=== PATIENT | male | born 1980 | race Caucasian/White ===

== ENCOUNTER 2018-10-30 06:07 | Emergency (ER) | payer SELFPAY ==
[2018-10-30 06:11] VITALS: BP 144/82; PULSE 102; RESP 24; TEMP 36.4; O2SAT 96
[2018-10-30 06:15] VITALS: RESP 24
--- NOTE | 2018-10-30 06:23 | ED.GENADUL_ITS ---
Discharge Plan Disposition Patient Disposition: HOME Condition: Improving Discharge Details Chief Complaint: GenMedical Clinical Impression: Acute bronchitis Primary Care Provider: None,None ED Provider: Priscilla Marin Home Meds and New Rx's Prescriptions: New amoxicillin-pot clavulanate [Augmentin] 875-125 mg tablet 1 tab PO BID 7 Days Qty: 14 RF: 0 prednisone 20 mg tablet See Rx Instructions .ROUTE .COMPLEX Qty: 12 RF: 0 Discharge Instructions Instructions: Acute Bronchitis (ED) Additional Instructions: Use the albuterol inhaler as needed directed for any shortness of breath, coughing or wheezing. Drink plenty of fluids and get plenty of rest. Alternate Tylenol and Motrin as needed and directed for pain or fever. You will receive a call from care management regarding a follow-up appoint with the primary care doctor within the next 1 week. Return immediately to the emergency department if you develop any worsening or new concerning symptoms. Stand Alone Forms: Work Release Discharge Data Discharge Date/Time-TO BE ENTERED AT DEPARTURE: 10/30/18 10:03 Discharge Physician: Priscilla Marin Medical Decision Making <Pancho Blas MD - Last Filed: 10/30/18 06:27> 37 yo female who denies chronic medical problems, does smoke but denies alcohol or drug use, comes in with subjective fevers and chills for several days along with cough and not having an appetitie. Denies rashes, severe abdominal pain, and no severe headaches or neck stiffness. He is noted to be diaphoretic on exam with intermittent dry cough and does have wheezing bilaterally at the bases. He has no abdominal tenderness and denies any tick bites. No recent travel per the pt. Given his exam findings and hx will obtain lab work and chest xray to [facility] for infiltrate and tx with steroids and nebulizer. He has no severe headaches or meningismus on exam so doubt event sales manager infection. Pt signed out to oncoming provider pending labs, xray an disposition Differential Diagnosis bronchitis, pna, tick born illness <Priscilla Marin DO - Last Filed: 10/30/18 12:11> 0700 --Please see Dr. Blas's note for initial presentation, exam and plan. 37-year-old male with a remote history of asthma who presents with sore throat, cough with green sputum, sweats and chills for the past week. Also admits to intermittent shortness of breath. Patient noted to be diaphoretic on arrival per Dr. Blas and upon my exam. He took Tylenol at 5 AM. He was given 1 L IV fluid. Vitals normal on my evaluation. Breath sounds noted scattered wheezing. Labs reviewed and note a normal white blood cell count. Lactate minimally elevated at 1.5. Anion gap 14. Urinalysis notes ketones but no infection. A tick panel was drawn but patient denies any known exposure to any tick bites. Rapid strep negative. Chest x-ray negative. Case endorsed to follow-up with patient on reassessment after fluids. I gave an additional liter IV fluids and Toradol and a second albuterol neb and patient feels better, no longer diaphoretic, lung sounds improved. Patient was able to ambulate around the emergency department and feels good to go home. Presentation most likely consistent with acute bronchitis. Denies any headache or neck pain and no meningeal signs so doubt meningitis. He is hemodynamically stable. As patient is a smoker and symptoms present for 1 week, will treat with antibiotics. Patient sent home with albuterol inhaler as well as prescription for steroids. Medical Records Medical records reviewed: Yes I reviewed the patient's medical records. Imaging Data Radiologic Study: Radiologist's impression: PA AND LATERAL CHEST: The heart is normal in size. The lungs are clear. The mediastinal structures and pleura appear intact. CONCLUSION: Normal chest. No evidence of acute cardiopulmonary disease. Lab Data Lab results reviewed: Yes I reviewed the patient's lab results. 10/30/18 07:23 Pharynx Streptococcus Screen (AGUS) - Pending 10/30/18 07:42 Blood Blood Culture - Pending 10/30/18 06:30 Blood Blood Culture - Pending Laboratory Tests Range/Units 10/30/18 10/30/18 10/30/18 06:30 06:30 06:30 WBC (4.4-10.8) k/cumm 8.82 RBC (4.50-6.00) m/cumm 5.64 Hgb (13.5-17.5) g/dL 16.8 Hct (40.0-50.0) % 48.3 MCV (80-95) fL 85.6 MCH (27.0-33.0) pg 29.8 MCHC (32.0-36.0) g/dL 34.8 RDW (11.8-14.1) % 12.3 Plt Count (130-400) x1000/uL 222 MPV (8.0-11.0) fL 9.7 Immature Gran % 0.1 Neutrophils % 69.1 Lymphocytes % 9.6 Monocytes % 20.9 Eosinophils % 0.1 Basophils % 0.2 Absolute Neutrophils (1.2-6.7) k/cumm 6.09 Absolute Lymphocytes (1.2-3.4) k/cumm 0.85 L Absolute Monocytes (0.11-0.7) k/cumm 1.84 H Absolute Eosinophils (0.0-0.7) k/cumm 0.01 Absolute Basophils (0.0-0.2) k/cumm 0.02 Differential Comment Agrees w/ instrument RBC Morphology Normal Sodium (136-145) mmol/L 138 Potassium (3.5-5.1) mmol/L 3.5 Chloride (98-107) mmol/L 102 Carbon Dioxide (21.0-32.0) mmol/L 21.6 Anion Gap (3-11) mmol/L 14.4 H BUN (7-18) mg/dL 16 Creatinine (0.70-1.30) mg/dL 1.19 Estimated GFR/1.73 m2 (mL/min/1.73m2) >= 60.00 Glucose (70-100) mg/dL 136 H Lactate (0.6-1.4) mmol/l 1.5 H Calcium (8.5-10.1) mg/dL 9.2 Total Bilirubin (0.2-1.0) mg/dL 0.4 AST (15-37) U/L 18 ALT (12-78) U/L 27 Alkaline Phosphatase (46-116) U/L 100 Total Protein (6.4-8.2) g/dL 8.2 Albumin (3.4-5.0) g/dL 4.1 Urine Color (Yellow) Urine Clarity (Clear) Urine pH (5-8) Ur Specific [place] (1.005-1.025) Urine Protein (Negative) mg/dL Urine Ketones (Negative) mg/dL Urine Blood (Negative) Urine Nitrite (Negative) Urine Bilirubin (Negative) Urine Urobilinogen (Up TO 0.2) EU/dL Ur Leukocyte Esterase (Negative) Urine RBC (0-2) Urine WBC (0-5) HPF Ur Epithelial Cells (Negative) HPF Urine Crystals (Negative) HPF Urine Bacteria (Negative) HPF Urine Casts (Negative) LPF Urine Mucus (Negative) Ur Culture Indicated? Urine Glucose (Negative) mg/dL Range/Units 10/30/18 07:52 WBC (4.4-10.8) k/cumm RBC (4.50-6.00) m/cumm Hgb (13.5-17.5) g/dL Hct (40.0-50.0) % MCV (80-95) fL MCH (27.0-33.0) pg MCHC (32.0-36.0) g/dL RDW (11.8-14.1) % Plt Count (130-400) x1000/uL MPV (8.0-11.0) fL Immature Gran % Neutrophils % Lymphocytes % Monocytes % Eosinophils % Basophils % Absolute Neutrophils (1.2-6.7) k/cumm Absolute Lymphocytes (1.2-3.4) k/cumm Absolute Monocytes (0.11-0.7) k/cumm Absolute Eosinophils (0.0-0.7) k/cumm Absolute Basophils (0.0-0.2) k/cumm Differential Comment RBC Morphology Sodium (136-145) mmol/L Potassium (3.5-5.1) mmol/L Chloride (98-107) mmol/L Carbon Dioxide (21.0-32.0) mmol/L Anion Gap (3-11) mmol/L BUN (7-18) mg/dL Creatinine (0.70-1.30) mg/dL Estimated GFR/1.73 m2 (mL/min/1.73m2) Glucose (70-100) mg/dL Lactate (0.6-1.4) mmol/l Calcium (8.5-10.1) mg/dL Total Bilirubin (0.2-1.0) mg/dL AST (15-37) U/L ALT (12-78) U/L Alkaline Phosphatase (46-116) U/L Total Protein (6.4-8.2) g/dL Albumin (3.4-5.0) g/dL Urine Color (Yellow) Yellow Urine Clarity (Clear) Clear Urine pH (5-8) 5.5 Ur Specific [place] (1.005-1.025) >= 1.030 H Urine Protein (Negative) mg/dL 30 H Urine Ketones (Negative) mg/dL 15 H Urine Blood (Negative) Negative Urine Nitrite (Negative) Negative Urine Bilirubin (Negative) Small H Urine Urobilinogen (Up TO 0.2) EU/dL 0.2 Ur Leukocyte Esterase (Negative) Negative Urine RBC (0-2) 0-2 Urine WBC (0-5) HPF Negative Ur Epithelial Cells (Negative) HPF Negative Urine Crystals (Negative) HPF Few amorphous Urine Bacteria (Negative) HPF Negative Urine Casts (Negative) LPF 5-10 wbc Urine Mucus (Negative) Heavy Ur Culture Indicated? No Urine Glucose (Negative) mg/dL Negative HPI <Pancho Blas MD - Last Filed: 10/30/18 06:27> General Mode of arrival: ambulatory . Date/Time Provider Initiated Documentation: 10/30/18 06:13 . Limitations to Documentation: no limitations . Information obtained by: patient . History of Present Illness 37 year old M presents to the emergency department with the chief complaint of not feeling well, described as moderate, Patient started experiencing this day(s) (3) and it has been constant. No relieving factors improve symptom(s), No exacerbating factors reported . Patient notes cough and fever/chills. P atient did receive the following treatments prior to arrival, none Related Data Home Medications Medication Instructions Recorded Confirmed amoxicillin-pot clavulanate 1 tab PO BID 7 Days #14 tab 10/30/18 [Augmentin] prednisone See Rx Instructions .ROUTE 10/30/18 .COMPLEX #12 tab Previous Rx's Medication Instructions Recorded amoxicillin-pot clavulanate 1 tab PO BID 7 Days #14 tab 10/30/18 [Augmentin] prednisone See Rx Instructions .ROUTE 10/30/18 .COMPLEX #12 tab Allergies Allergy/AdvReac Type Severity Reaction Status Date / Time No Known Drug Allergies Allergy Unverified 10/30/18 06:14 General Stated Complaint: GenMedical [place]: 3 Review of Systems <Pancho Blas MD - Last Filed: 10/30/18 06:27> Review of Systems All systems reviewed & are unremarkable except as noted in HPI and below Constitutional Denies chills, Denies fever(s) and Denies weakness Cardiovascular Denies chest pain and Denies dyspnea Respiratory Denies cough and Denies dyspnea Gastrointestinal Denies abdominal pain, Denies nausea and Denies vomiting Integumentary/Breasts Denies rash Neurologic Denies weakness PFSH <Pancho Blas MD - Last Filed: 10/30/18 06:27> Social History Smoking/Tobacco Use Status: Current every day Tobacco Type: cigarettes Smoking cigarettes per day: 12 Alcohol Intake: former Substance use type: does not use Do you feel safe at home: Yes Do you feel safe in your relationship?: Yes Exam <Pancho Blas MD - Last Filed: 10/30/18 06:27> Const General: no acute distress Orientation: alert HENMT Head: normal to inspection Ears: external ears normal General nose exam: external nose normal Mouth: moist mucous membranes Eyes General: appearance normal, both eyes and all related structures Neck Neck: normal visual inspection Resp Effort & Inspection: normal respiratory effort and able to speak in complete sentences Cardio Rate: regular rate Skin General skin exam: no rashes or lesions noted Neuro General: alert and oriented x3 Extrem General: normal to inspection Psych Mental Status: mental status grossly normal Course <Pancho Blas MD - Last Filed: 10/30/18 06:27> Vital Signs Temperature 36.4 C 10/30/18 06:11 Pulse 102 H 10/30/18 06:11 Respiratory Rate 24 10/30/18 06:11 Blood Pressure 144/82 H 10/30/18 06:11 Pulse Oximetry 96 10/30/18 06:11 Temperature 36.4 C 10/30/18 06:11 Temperature Source Tympanic 10/30/18 06:11 Pulse 102 H 10/30/18 06:11 Respiratory Rate 24 10/30/18 06:15 Respiratory Effort Non-Labored 10/30/18 06:15 Respiratory Depth Shallow 10/30/18 06:15 Respiratory Pattern Tachypnea 10/30/18 06:15 Blood Pressure 144/82 H 10/30/18 06:11 Pulse Oximetry 96 10/30/18 06:11 Oxygen Delivery Method Room Air 10/30/18 06:11 Oxygen Flow Rate 0 10/30/18 06:11 Pain Level 0 10/30/18 06:11 Lab/Test Results Lab/Test Results: 10/30/18 06:21 Blood Blood Culture - Pending 10/30/18 06:21 Blood Blood Culture - Pending Sign Out <Pancho Blas MD - Last Filed: 10/30/18 06:27> Sign Out Data: Sign Out Comment: pending labs, chest xray , neb and steroids Last updated by Pancho Blas MD at 10/30/18 06:27
[2018-10-30 06:38] LABS: Lactate-non-spesis 1.5 mmol/l (0.6-1.4)
[2018-10-30 06:41] LABS: Abs Immature Grans 0.01 k/cumm (0.0-0.09); Absolute Basophil Count 0.02 k/cumm (0.0-0.2); Absolute Eosinophil Count 0.01 k/cumm (0.0-0.7); Absolute Lymphocyte Count 0.85 k/cumm (1.2-3.4); Absolute Monocyte Count 1.84 k/cumm (0.11-0.7); Absolute Neutrophil Count 6.09 k/cumm (1.2-6.7); Basophils % 0.2; Eosinophils % 0.1; HCT 48.3 % (40.0-50.0); HGB 16.8 g/dL (13.5-17.5); Immature Grans % 0.1; Lymphocytes % 9.6; Mean Corp. HGB Concentration 34.8 g/dL (32.0-36.0); Mean Corpuscular Hemoglobin 29.8 pg (27.0-33.0); Mean Corpuscular Volume 85.6 fL (80-95); Mean Platelet Volume 9.7 fL (8.0-11.0); Monocytes % 20.9; Neutrophils % 69.1; Platelet Count 222 x1000/uL (130-400); RBC 5.64 m/cumm (4.50-6.00); RBC Distribution Width 12.3 % (11.8-14.1); White Blood Cell Count 8.82 k/cumm (4.4-10.8)
[2018-10-30 06:45] VITALS: PULSE 102; RESP 20; RESP 4; O2SAT 97
[2018-10-30] MEDS: methylPREDNISolone SUCC 125 MG VIAL IVP (06:45)
[2018-10-30] MEDS: Albuterol/Ipratropium 3 ML UPD VIAL UPD (06:45)
[2018-10-30] MEDS: Normal Saline 1,000 ML 1000 ML IV ×2 (06:46→07:46)
[2018-10-30 07:02] LABS: ALT 27 U/L (12-78); AST 18 U/L (15-37); Albumin 4.1 g/dL (3.4-5.0); Alkaline Phosphatase 100 U/L (46-116); Anion Gap 14.4 mmol/L (3-11); BUN 16 mg/dL (7-18); Bilirubin, Total 0.4 mg/dL (0.2-1.0); CO2 21.6 mmol/L (21.0-32.0); CREATININE 1.19 mg/dL (0.70-1.30); Calcium 9.2 mg/dL (8.5-10.1); Chloride 102 mmol/L (98-107); Glucose 136 mg/dL (70-100); Potassium 3.5 mmol/L (3.5-5.1); Sodium 138 mmol/L (136-145); Total Protein 8.2 g/dL (6.4-8.2)
[2018-10-30 07:11] LABS: Diff Comment Agrees w/ Instrument; RBC Morphology Normal
[2018-10-30] MEDS: Ketorolac 30 MG/ML VIAL IVP (07:46)
[2018-10-30 07:57] VITALS: TEMP 37.6
[2018-10-30 08:00] LABS: Bilirubin Small (Negative); Blood Negative (Negative); Clarity Clear (Clear); Glucose Negative (Negative); Ketones 15 mg/dL (Negative); Leukocyte Esterase Negative (Negative); Nitrite Negative (Negative); Specific Gravity >= 1.030 (1.005-1.025); Urobilinogen 0.2 EU/dL (Up TO 0.2); pH 5.5 (5-8)
[2018-10-30 08:13] LABS: Bacteria Negative HPF (Negative); Crystals Few Amorphous HPF (Negative); Epithelial Cells Negative HPF (Negative); Mucus Heavy (Negative); RBC 0-2 (0-2); WBC Negative HPF (0-5)
[2018-10-30 08:14] LABS: C & S Indicated? No
[2018-10-30] MEDS: Acetaminophen 325 MG TAB 650 MG PO (09:00)
[2018-10-30] MEDS: Albuterol 2.5 MG/3 ML INH SOLN VIAL UPD (09:00)
[2018-10-30 09:15] VITALS: BP 124/57; PULSE 95; RESP 18; O2SAT 97
--- NOTE | 2018-10-30 09:40 | NUR.NOTE ---
Nursing Note: pt ambulated around ER with RN, pt tolerated well. MD notified.
[2018-10-30 09:56] VITALS: BP 123/70; PULSE 93; RESP 17; TEMP 36.7; O2SAT 97
[2018-10-30] MEDS: Albuterol HFA 8 GM 60 PUFF INH IH (10:00)
[2018-10-31 10:44] LABS: Lyme Ab w Rflx to Lyme Confirm Negative
[2018-11-01 22:22] LABS: Anaplasma phagocytophilum Negative (Negative); B. miyamotoi PCR Negative (Negative); Babesia divergens/MO-1 Negative (Negative); Babesia duncani Negative (Negative); Babesia microti Negative (Negative); Ehrlichia chaffeensis Negative (Negative); Ehrlichia ewingii/canis Negative (Negative); Ehrlichia muris eauclairensis Negative (Negative)
== END 2018-10-30 10:03 | disposition home or self-care (01) ==
PROVIDERS: Emergency Medicine; Emergency Provider Physician Assistant
DX: R50.9 Fever, unspecified (principal); R05 Cough; J20.9 Acute bronchitis, unspecified; J02.9 Acute pharyngitis, unspecified; F17.210 Nicotine dependence, cigarettes, uncomplicated
CPT/HCPCS: 36415; 80053; 87040; 87798; 87880; 94640; 96361; 96374; 96375; 99284; 71046; 81003; 81015; 83605; 85025; 86618; 87081; J1885; J2930; J7613; J7620

== ENCOUNTER 2020-01-12 12:58 | Emergency (ER) | payer SELFPAY ==
[2020-01-12 13:06] VITALS: BP 125/75; PULSE 94; RESP 16; TEMP 36.4; O2SAT 96
[2020-01-12] MEDS: Fluorescein STRIPS 100/BOX 1 MG (13:10)
[2020-01-12] MEDS: Tetracaine 0.5% 4 ML BTL (13:10)
--- NOTE | 2020-01-12 13:33 | W.ED.GENAD ---
Discharge Plan Disposition Patient Disposition: HOME Condition: Stable Discharge Details Clinical Impression: Eye foreign body Primary Care Provider: None,None ED Provider: Rajendra Brown Home Meds and New Rx's Prescriptions: Discontinued prednisone 20 mg tablet See Rx Instructions .ROUTE .COMPLEX Qty: 12 RF: 0 Discharge Instructions Instructions: Eye Foreign Body (ED) Additional Instructions: Unfortunately I was unable to remove the foreign body. I personally spoke with Dr. Gill at [facility] and they are expecting you to leave the ER now and go directly to their facility so that they may be able to evaluate you and remove the foreign body with a more specialized tool. Please watch for new or worsening symptoms and return to the ER for any concerns. Referrals: [facility] [Outside] Discharge Data Discharge Date/Time-TO BE ENTERED AT DEPARTURE: 01/12/20 13:43 Medical Decision Making 39-year-old gentleman presents for initial foreign body in the eye that occurred on Saturday. Visual acuities are 20/30 left and right, both eyes are 20/25. Examination does reveal a foreign body. Tetracaine placed in the right eye. I then attempted using both the soft cotton swab side of a Q-tip and the more firm wooden side to remove the foreign body but I was unable. Patient reports that attempting to remove the foreign body is uncomfortable. I feel as though the foreign body is slightly deeper than I am comfortable attempting to remove here in the ER. I would typically evaluate the patient with fluorescein and the slit-lamp but prior to this I was able to contact [facility] able to speak with Dr. Gill. He stated that he recall the will be able to immediately evaluate the patient and remove the foreign body. He recommended discharging the patient and having him come straight to his facility. I discussed this plan with the patient who was comfortable and had no additional questions or concerns. Medical Records Medical records reviewed: Yes I reviewed the patient's medical records. HPI General Mode of arrival: ambulatory. Date/Time Provider Initiated Documentation: 01/12/20 13:01. Limitations to Documentation: no limitations. Information obtained by: patient. HPI Narrative: This is a otherwise healthy 39-year-old gentleman who does not wear contacts or glasses. He presents to the ER reporting that on Saturday while wearing safety glasses he was cutting sheet metal and thinks that he got a piece of metal in his right eye. He reports some redness, irritation and discomfort since that time. Denies any blurry or double vision. He has no additional questions or concerns at this time Related Data Allergies Allergy/AdvReac Type Severity Reaction Status Date / Time No Known Drug Allergies Allergy Unverified 10/30/18 06:14 General Stated Complaint: EyeProblem [place]: 4 Review of Systems Constitutional Constitutional: Denies fever(s) and Denies headache(s) Eyes Eyes: Denies change in vision, Denies diplopia, Reports irritation and Reports eye pain ENT Ears, Nose, Mouth, and Throat: Denies headache(s) Musculoskeletal Musculoskeletal: Denies numbness and Denies tingling Neurologic Neurologic: Denies headache(s), Denies numbness and Denies tingling [facility] Social History Smoking/Tobacco Use Status: Current every day Tobacco Type: cigarettes Alcohol Intake: former Substance use type: does not use Do you feel safe at home: Yes Do you feel safe in your relationship?: Yes Exam Const General: cooperative, healthy appearing, comfortable and no acute distress Orientation: alert, awake and oriented x3 HENMT Head: normal to inspection, normocephalic and atraumatic Face and sinus: normal facial exam Mouth: moist mucous membranes Eyes Alignment and Position: alignment normal Periorbital: periorbital findings normal Eyelids: eyelids normal and other (Right eyelid flipped) Conjunctivae: conjunctival abnormality right conjunctival injection Sclera: sclerae normal Cornea: corneas abnormal on the right foreign body Pupils: PERRL EOM: EOM intact bilaterally Direct ophthalmoscopy: normal light reflex Eyes/upper lids images: 1. Foreign body Neck Neck: normal visual inspection, full ROM, trachea midline and supple Resp Effort & Inspection: normal respiratory effort and able to speak in complete sentences Cardio Rate: regular rate Rhythm: regular rhythm Skin General skin exam: no rashes or lesions noted Neuro General: patient alert, patient awake, moves all extremities and no focal motor deficits Sensory Exam: no sensory deficits noted Psych Appearance: grossly normal Mental Status: mental status grossly normal Course Vital Signs Vital signs: Vital Signs Temperature 36.4 C L 01/12/20 13:06 Pulse 94 H 01/12/20 13:06 Respiratory Rate 16 01/12/20 13:06 Blood Pressure 125/75 01/12/20 13:06 Pulse Oximetry 96 01/12/20 13:06 Temperature 36.4 C L 01/12/20 13:06 Temperature Source Tympanic 01/12/20 13:06 Pulse 94 H 01/12/20 13:06 Respiratory Rate 16 01/12/20 13:06 Respiratory Effort Non-Labored 01/12/20 13:08 Blood Pressure 125/75 01/12/20 13:06 Blood Pressure Position Sitting 01/12/20 13:06 Pulse Oximetry 96 01/12/20 13:06 Oxygen Delivery Method Room Air 01/12/20 13:06 Oxygen Flow Rate 0 01/12/20 13:06 Pain Level 0 01/12/20 13:06
== END 2020-01-12 13:43 | disposition home or self-care (01) ==
PROVIDERS: Emergency Provider Physician Assistant
DX: S05.91XA Unspecified injury of right eye and orbit, initial encounter (principal); T15.01XA Foreign body in cornea, right eye, initial encounter; H57.11 Ocular pain, right eye
CPT/HCPCS: 99283

== ENCOUNTER 2021-03-02 12:39 | Emergency (ER) | payer SELFPAY ==
[2021-03-02 12:46] VITALS: BP 128/78; PULSE 73; RESP 16; TEMP 37.6; O2SAT 99
--- NOTE | 2021-03-02 13:33 | W.ED.GENAD ---
Discharge Plan Disposition Patient Disposition: HOME Condition: Stable Discharge Details Clinical Impression: Acute viral syndrome Primary Care Provider: None,None ED Provider: Karol Braden Home Meds and New Rx's Prescriptions: No Action ibuprofen 200 mg Capsule 600 mg PO Q6H PRNRF: 0 Discharge Instructions Instructions: Viral Syndrome (ED) Additional Instructions: You should isolate until the results of your test return, 24 to 36 hours Ibuprofen and Tylenol for fever control Return earlier should he have new or worsening complaints including shortness of breath, chest pain, or with any worsening complaints Stand Alone Forms: PENDING COVID-19 TESTING Discharge Data Discharge Date/Time-TO BE ENTERED AT DEPARTURE: 03/02/21 13:41 Medical Decision Making Patient appears well, he is alert, oriented, no meningismus, Covid test pending Work note supplied Discussed isolation Discharged home in stable condition with stable vitals, no hypoxia, oxygenation 99% on room air, vitals stable, 25 outpatient follow-up should he have new or worsening/persistent symptoms Medical Records Medical records reviewed: Yes I reviewed the patient's medical records. Lab Data Lab results reviewed: Yes I reviewed the patient's lab results. HPI General Mode of arrival: ambulatory. Date/Time Provider Initiated Documentation: 03/02/21 13:23. Limitations to Documentation: no limitations. Information obtained by: patient. HPI Narrative: This 40-year-old gentleman presents with fever, myalgias, sweating, metallic teeth and mouth for the past 2 days. He states he had a Covid test a week ago that was negative. He denies any cough, chest pain, shortness of breath, dizziness any urinary symptoms. Denies any known sick contacts. reported runny nose Is not Covid vaccinated reportedly. Denies any stiff neck or headache. T-max of 100. Patient states that my internal body temperature is 90.8, so this is a fever for me . Denies any rashes or lesions. Related Data Home Medications Medication Instructions Recorded Confirmed ibuprofen 600 mg PO Q6H PRN 03/02/21 03/02/21 Allergies Allergy/AdvReac Type Severity Reaction Status Date / Time No Known Drug Allergies Allergy Unverified 03/02/21 12:53 General Stated Complaint: Fever [place]: 3 Review of Systems All systems reviewed & are unremarkable except as noted in HPI and below [facility] Active Problem List (Updated 03/02/21 @ 13:35 by JOSE Lieberman) Acute viral syndrome (Acute) Social History Smoking/Tobacco Use Status: Current every day Tobacco Type: cigarettes Smoking risk assessment performed?: Yes Alcohol Intake: former Substance use type: does not use Do you feel safe at home: Yes Do you feel safe in your relationship?: Yes Exam Const General: cooperative, comfortable and no acute distress HENMT Head: normal to inspection Mouth: No moist mucous membranes abnormal Eyes Pupils: PERRL Neck Other: no meningismus Resp Effort & Inspection: normal respiratory effort Cardio Rate: regular rate GI Other: no abdominal tenderness Skin General skin exam: no rashes or lesions noted Neuro General: patient alert and patient oriented x3 Extrem General: normal to inspection Course Vital Signs Vital signs: Vital Signs Temperature 37.6 C 03/02/21 12:46 Pulse 73 03/02/21 12:46 Respiratory Rate 16 03/02/21 12:46 Blood Pressure 128/78 03/02/21 12:46 Pulse Oximetry 99 03/02/21 12:46 Temperature 37.6 C 03/02/21 12:46 Temperature Source Temporal Artery Scan 03/02/21 12:46 Pulse 73 03/02/21 12:46 Respiratory Rate 16 03/02/21 12:46 Respiratory Effort Non-Labored 03/02/21 12:52 Blood Pressure 128/78 03/02/21 12:46 Blood Pressure Position Sitting 03/02/21 12:46 Pulse Oximetry 99 03/02/21 12:46 Oxygen Delivery Method Room Air 03/02/21 12:46 Oxygen Flow Rate 0 03/02/21 12:46 Pain Level 5 03/02/21 12:46
[2021-03-03 16:11] LABS: COVID-19 RT-PCR UVMMC Result Positive (Negative)
== END 2021-03-02 13:41 | disposition home or self-care (01) ==
PROVIDERS: Emergency Provider Physician Assistant
DX: U07.1 COVID-19 (principal)
CPT/HCPCS: 99281; U0003; 99283